=== PATIENT | male | born 1970 | race Hispanic/Latino ===

== ENCOUNTER → 2022-03-15 | Outpatient (CLI) | payer OTHER ==
[~2022-03-15] MED LIST: APIX5TAB PO; ATOR40TA71 PO; CLOP75TA32 PO; FURO40TA7 PO; METO50TA9 PO; SPIR25TA6 PO
== END | disposition home or self-care (01) ==
LOC: OIH 10:45
PROVIDERS: ATTEND Internal Medicine Cardiovascular Disease
DX: I34.0 Nonrheumatic mitral (valve) insufficiency (principal); I42.0 Dilated cardiomyopathy; E78.5 Hyperlipidemia, unspecified
CPT/HCPCS: 93306